=== PATIENT | male | born 1995 | race Hispanic/Latino ===

== ENCOUNTER → 2018-08-04 | Outpatient (CLI) | payer OTHER | END | disposition home or self-care (01) | LOC: OIH 10:26 | PROVIDERS: ATTEND Family Medicine | DX: S99.921A Unspecified injury of right foot, initial encounter (principal); H54.8 Legal blindness, as defined in USA; H91.90 Unspecified hearing loss, unspecified ear; W34.00XA Accidental discharge from unspecified firearms or gun, initial encounter; Y93.89 Activity, other specified; Y92.89 Other specified places as the place of occurrence of the external cause; Y99.8 Other external cause status | CPT/HCPCS: 73620 ==

== ENCOUNTER 2019-10-12 05:20 | Day surgery (SDC) | payer MEDICAID ==
[2019-10-12] VITALS (18 sets, daily range): BP systolic 117–140; BP diastolic 45–86
[~2019-10-12 05:20] MED LIST: ACET1TAB12 PO; BUPR-47 PO; HYDR-3422 PO; IBUP-2077 PO
[2019-10-12 06:34] LABS: BASOPHILS % (AUTO) 0.7 % (0.0-5.0); EOSINOPHILS % (AUTO) 5.2 % (0.0-8.0); HEMATOCRIT 43.6 % (42-54); LYMPHOCYTES % (AUTO) 44.1 % (21.0-51.0); MEAN CORPUSCULAR HEMOGLOBIN 29.5 pg (27.0-33.0); MEAN CORPUSCULAR HGB CONC 33.7 g/dL (32.0-36.0); MEAN CORPUSCULAR VOLUME 87.6 fL (79-99); NEUTROPHILS % (AUTO) 40.8 % (40.0-77.0); PLATELET COUNT (AUTO) 239 K/uL (130-400); RED BLOOD CELL COUNT(AUTO) 4.98 MIL/uL (4.50-6.20); WHITE BLOOD COUNT (AUTO) 5.8 K/uL (4.8-10.8)
[2019-10-12 06:42] LABS: CREATININE 1.2 mg/dL (0.5-1.5); POTASSIUM 3.6 mmol/L (3.5-5.1)
[2019-10-12] MEDS ORDERED: LACTATED RINGERS 1000ML 1,000 ML IV ONE (06:42)
[2019-10-12] MEDS: CEFAZOLIN SODIUM 1 GM VIAL ONE ×2 (07:08→08:05)
[2019-10-12] MEDS ORDERED: SUCCINYLCHOLINE 200MG/10ML SYR ONE (07:11)
[2019-10-12] MEDS ORDERED: MIDAZOLAM HCL 1 MG/ML 2ML VIAL ONE (07:11)
[2019-10-12] MEDS ORDERED: PROPOFOL 10 MG/ML 20ML VIAL IV ONE (07:11)
[2019-10-12] MEDS ORDERED: FENTANYL CITRATE PF 50 MCG/1 ML 2ML VIAL ONE (07:12)
[2019-10-12] MEDS ORDERED: LIDOCAINE PF 2% 5ML ABBOJECT ONE (07:14)
[2019-10-12] MEDS ORDERED: ROCURONIUM 10MG/1ML SYR 10 MG/ML ML ONE (07:51)
[2019-10-12] MEDS ORDERED: DEXAMETHASONE SOD PHOSPHATE 4 MG/ML 1ML VIAL ONE (08:00)
[2019-10-12] MEDS ORDERED: ONDANSETRON HCL 4 MG/2 ML VIAL ONE (08:00)
[2019-10-12] MEDS ORDERED: KETOROLAC TROMETHAMINE 30MG/ML ONE ×2 (09:12→10:46)
--- NOTE | 2019-10-12 10:35 | NUR ---
Pt received from PACU from [facility]. Pt reported that they were in a lot of pain. [facility] informed and came and administered pain medication for relief. Pt's right finger immobilized as well as right hand with heavily padded gauze and wrapped in Kerlix. Dressing remains dry, clean and intact. Pt instructed to leave dressing on until seen at follow-up appointment, keeping it dry, clean and intact. Pillow provided for pt to keep right hand elevated. Pt instructed to keep it elevated for 48 hours.
--- NOTE | 2019-10-12 11:30 | NUR ---
Pt discharged home. Tolerating fluids well, ambulating well, denies any nausea or dizziness. Dressing remains clean, dry and intact. Pt instructed in signs and symptoms to look for in case of infection or bleeding. Pt encouraged to move fingers for range of motion exercises and instructed not to lift anything over 3 lbs.
== END 2019-10-12 11:30 | disposition home or self-care (01) ==
LOC: DAH 05:20
PROVIDERS: ATTEND Orthopaedic Surgery
DX: S62.326A Displaced fracture of shaft of fifth metacarpal bone, right hand, initial encounter for closed fracture (principal); M79.641 Pain in right hand; F17.290 Nicotine dependence, other tobacco product, uncomplicated; X58.XXXA Exposure to other specified factors, initial encounter; Y93.89 Activity, other specified; Y92.89 Other specified places as the place of occurrence of the external cause; Y99.8 Other external cause status; Z79.899 Other long term (current) drug therapy; Z82.49 Family history of ischemic heart disease and other diseases of the circulatory system; Z83.3 Family history of diabetes mellitus
CPT/HCPCS: 26615; 36415; 73130; 80048; 85025; A4215; A4221; A4222; A4223; A4649 ×2; A4663; A4930 ×2; A6223; A6446; C1713 ×5; C1776; J0330; J0690; J1100; J1885 ×2; J2001; J2250; J2405; J2704; J3010; J7120